=== PATIENT | female | born 2000 | race Caucasian/White ===

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

== ENCOUNTER 2022-09-17 02:47 | Emergency (ER) | payer BC, OTHER ==
[~2022-09-17] VITALS: Ht 154.9 cm; Wt 99.8 kg
[2022-09-17 03:33] LABS: BASOPHILS ABSOLUTE AUTO 0.03 K/mm3 (0.00-0.23); BASOPHILS PERCENT AUTO 0 % (0-2); EOSINOPHILS ABSOLUTE AUTO 0.12 K/mm3 (0.00-0.68); EOSINOPHILS PERCENT AUTO 2 % (0-6); Hematocrit 37.3 % (33.0-51.0); Hemoglobin 12.7 g/dL (11.5-16.0); IMMATURE GRAN ABSOLUTE AUTO 0.02 K/mm3 (0.00-0.10); IMMATURE GRAN PERCENT AUTO 0 % (0-1); LYMPHOCYTES ABSOLUTE AUTO 1.48 K/mm3 (0.84-5.20); LYMPHOCYTES PERCENT AUTO 19 % (21-46); MONOCYTES ABSOLUTE AUTO 0.61 K/mm3 (0.16-1.47); MONOCYTES PERCENT AUTO 8 % (4-13); Mean Corpuscular HGB 30.7 pg (26.0-34.0); Mean Corpuscular Volume 90 fL (80-100); Mean Platelet Volume 9.5 fL (9.1-12.4); NEUTROPHILS ABSOLUTE AUTO 5.58 K/mm3 (1.96-9.15); NEUTROPHILS PERCENT AUTO 71 % (41-73); Platelet Count 299 K/mm3 (150-400); RDW Coefficient Variation 12.5 % (11.7-14.2); RDW Standard Deviation 41.2 fL (35.1-46.3); Red Blood Cell Count 4.14 M/mm3 (3.80-5.20); White Blood Cell Count 7.84 K/mm3 (4.00-11.30)
[2022-09-17 03:51] LABS: Albumin, Blood 3.1 g/dL (3.4-5.0); Bilirubin, Direct 0.1 mg/dL (0.0-0.3); Bilirubin, Indirect 0.2 mg/dL (0.1-0.7); Bilirubin, Total 0.3 mg/dL (0.1-1.0); Bun/Creatinine Ratio 16.3 (12.0-20.0); Creatinine, Blood 0.61 mg/dL (0.40-1.00); Magnesium, Blood 1.8 mg/dL (1.6-2.4); Potassium, Blood 3.5 mmol/L (3.5-5.5); Total Protein, Blood 6.1 g/dL (6.4-8.2)
[2022-09-17 04:25] LABS: Source, Urine Clean Catch
[2022-09-17 04:44] LABS: Bilirubin, Urine Neg (Neg); Blood, Urine Neg (Neg); Glucose Qualitative, Urine Neg (Neg); Ketones, Urine Neg (Neg); Leukocyte Esterase, Urine 1+ (Neg); Nitrite, Urine Neg (Neg); Protein, Urine Neg (Neg); Urobilinogen, Urine NORM (Normal)
[2022-09-17 04:59] LABS: Appearance, Urine Clear (Clear); Color, Urine Pale Yellow (P-Yellow)
[2022-09-17 05:07] LABS: Amorphous Light (0-Heavy); Bacteria Not Seen /hpf; Red Blood Cells, Urine Not Seen /hpf (0-2); Squamous Epithelial Cells Not Seen /hpf (Few); White Blood Cells, Urine 0-2 /hpf (0-5)
[2022-09-17 05:48] LABS: Influenza A, PCR NEGATIVE (NEGATIVE); Influenza B, PCR NEGATIVE (NEGATIVE); Resp Syncytial Virus, PCR NEGATIVE (NEGATIVE); SARS-Cov-2 (COVID-19) PCR, MMC NEGATIVE (NEGATIVE)
== END 2022-09-17 06:21 | disposition home or self-care (01) ==
LOC: ER 02:47
PROVIDERS: Student in an Organized Health Care Education/Training Program
DX: M79.18 Myalgia, other site (principal); M54.9 Dorsalgia, unspecified; R07.89 Other chest pain; Z88.6 Allergy status to analgesic agent; Z91.040 Latex allergy status; Z91.048 Other nonmedicinal substance allergy status; Z20.822 Contact with and (suspected) exposure to COVID-19
CPT/HCPCS: 0241U; 80048; 80076; 81001; 81025; 83690; 83735; 85025; J1885; J2405; J7030

== ENCOUNTER 2023-05-17 06:29 | Observation (INO) | payer OTHER ==
[2023-05-17] VITALS (12 sets, daily range): BP systolic 99–139; BP diastolic 47–76
[~2023-05-17] VITALS: Ht 154.9 cm; Wt 108.9 kg
[~2023-05-17 06:29] MED LIST changes: +CYCL10 PO
[2023-05-17] MEDS ORDERED: DESVENLAFAXINE100 M3 PO (06:46)
[2023-05-17 07:09] LABS: Source, Urine Clean Catch
[2023-05-17 07:16] LABS: Appearance, Urine Clear (Clear); Bilirubin, Urine Neg (Neg); Blood, Urine Neg (Neg); Color, Urine Yellow (P-Yellow); Glucose Qualitative, Urine Neg (Neg); Ketones, Urine Neg (Neg); Leukocyte Esterase, Urine Neg (Neg); Nitrite, Urine Neg (Neg); Protein, Urine Neg (Neg); Specific Gravity, Urine 1.015 (1.003-1.022); Urobilinogen, Urine NORM (Normal)
[2023-05-17 07:18] LABS: BASOPHILS ABSOLUTE AUTO 0.05 K/mm3 (0.00-0.23); BASOPHILS PERCENT AUTO 1 % (0-2); EOSINOPHILS ABSOLUTE AUTO 0.07 K/mm3 (0.00-0.68); EOSINOPHILS PERCENT AUTO 1 % (0-6); Hematocrit 42.5 % (33.0-51.0); Hemoglobin 14.2 g/dL (11.5-16.0); IMMATURE GRAN ABSOLUTE AUTO 0.03 K/mm3 (0.00-0.10); IMMATURE GRAN PERCENT AUTO 0 % (0-1); LYMPHOCYTES ABSOLUTE AUTO 1.44 K/mm3 (0.84-5.20); LYMPHOCYTES PERCENT AUTO 16 % (21-46); MONOCYTES ABSOLUTE AUTO 0.71 K/mm3 (0.16-1.47); MONOCYTES PERCENT AUTO 8 % (4-13); Mean Corpuscular HGB 30.1 pg (26.0-34.0); Mean Corpuscular HGB Conc 33.4 g/dL (31.5-36.5); Mean Corpuscular Volume 90 fL (80-100); Mean Platelet Volume 9.1 fL (9.1-12.4); NEUTROPHILS PERCENT AUTO 74 % (41-73); Platelet Count 343 K/mm3 (150-400); RDW Coefficient Variation 12.6 % (11.7-14.2); RDW Standard Deviation 41.2 fL (35.1-46.3); Red Blood Cell Count 4.71 M/mm3 (3.80-5.20)
[2023-05-17 07:37] LABS: Albumin, Blood 3.7 g/dL (3.4-5.0); Bilirubin, Total 0.4 mg/dL (0.1-1.0); Bun/Creatinine Ratio 17.3 (12.0-20.0); Calcium, Blood 8.7 mg/dL (8.5-10.1); Creatinine, Blood 0.87 mg/dL (0.40-1.00); Globulin, Blood 3.8 g/dL (2.2-4.0); Potassium, Blood 3.8 mmol/L (3.5-5.5); Total Protein, Blood 7.5 g/dL (6.4-8.2)
[2023-05-17] MEDS ORDERED: PROG100 PO (12:13)
[2023-05-17] MEDS ORDERED: CYCL10 PO (12:13)
[2023-05-17] MEDS ORDERED: ALBU90OI INH (12:20)
[2023-05-17] MEDS ORDERED: ESZOPICLONE1 MG PO (12:22)
--- NOTE | 2023-05-17 12:29 | NUR ---
History, Chart, Medications and Allergies reviewed before start of procedure. Pre-Op teaching done. Pt verbalizes understanding. Patient confirms NPO status and agrees with scheduled surgery. Patient States Post-Procedure ride home has been arranged. Lungs clear T/O to Auscultation. Surgical site prepped with 2% Chlorhexidine cloth wipe.
--- NOTE | 2023-05-17 15:01 | NUR ---
ARRIVAL TO UNIT ARRIVES VIA GOURNEY & TRANSFERED TO HOSPITAL BED. ALERT & ORIENTED, BUT SLIGHTLY ANXIOUS. ABD SOFT w/ LAP SITES x 4 w/ WOUND GLUE; NO DRNG. LUNGS CLEAR. DENIES N/V. REPORTS PAIN MINIMAL. GIVEN SIPS OF WATER & JUICE.
[2023-05-17] MEDS ORDERED: Norco 5-325 Ta1 EACH PO (17:32)
[2023-05-17] MEDS ORDERED: ONDA4ODT MM (17:32)
--- NOTE | 2023-05-17 18:29 | NUR ---
DISCHARGE EATING, DRINKING, & VOIDING. PAIN CONTROLLED. ABD SOFT & LAP SITES WNL. EXCITED TO GO HOME. ESCORTED OUT VIA WC.
== END 2023-05-17 18:29 | disposition home or self-care (01) ==
LOC: ER 06:29 → SURS 06:30
PROVIDERS: Student in an Organized Health Care Education/Training Program; ADMIT Surgery
PROC: 0FT44ZZ Resection of Gallbladder, Percutaneous Endoscopic Approach (ICD-10-PCS; principal; 2023-05-17 13:00)
DX: K80.00 Calculus of gallbladder with acute cholecystitis without obstruction (principal); Z88.6 Allergy status to analgesic agent; Z91.040 Latex allergy status; Z91.048 Other nonmedicinal substance allergy status
CPT/HCPCS: 74177; 74300; 80053; 81003; 81025; 85025; 88304; 96365-59; 96375; 99285-25; A9270; C1729; J0690; J1100; J1170; J1885; J2250; J2371; J2405; J2704; J3010; J7120; Q9967

== ENCOUNTER 2024-08-05 18:50 | Emergency (ER) | payer OTHER ==
[~2024-08-05] VITALS: Ht 154.9 cm; Wt 117.9 kg
[~2024-08-05 18:50] MED LIST changes: +DESVENLAFAXINE100 M3 PO; +ESZOPICLONE1 MG PO; +Norco 5-325 Ta1 EACH PO; +ONDA4ODT MM; +PROG100 PO
[2024-08-05] MEDS ORDERED: HYDCHL25 PO (19:58)
[2024-08-05] MEDS ORDERED: MODAFINIL200 MG PO (19:58)
[2024-08-05] MEDS ORDERED: Acetaminophen 500 MG Tab PO ONE (20:20)
[2024-08-05] MEDS ORDERED: DiphenhydrAMINE HCL 25 MG Cap PO ONE (20:40)
[2024-08-05] MEDS ORDERED: MethylPREDNISolone Sod Succ 125 MG Vial IV ONE (20:40)
[2024-08-05] MEDS ORDERED: Famotidine 20 MG Tab PO ONE (20:45)
[2024-08-05] MEDS ORDERED: Ondansetron 4 MG TAB PO ONE (20:45)
[2024-08-05] MEDS ORDERED: Fluorescein Sod 1MG Opth Strips RIGHTEYE ONE (22:00)
[2024-08-05 22:15] VITALS: BP 124/91
[2024-08-05] MEDS ORDERED: Ketorolac Tromethamine 15mg Vial IV ONE (22:15)
== END 2024-08-05 22:32 | disposition home or self-care (01) ==
LOC: ER 18:50
DX: S50.311A Abrasion of right elbow, initial encounter (principal); S80.211A Abrasion, right knee, initial encounter; M25.511 Pain in right shoulder; R07.89 Other chest pain; V80.010A Animal-rider injured by fall from or being thrown from horse in noncollision accident, initial encounter; Y93.52 Activity, horseback riding; Z91.041 Radiographic dye allergy status; Z88.5 Allergy status to narcotic agent; Z88.6 Allergy status to analgesic agent; Z91.09 Other allergy status, other than to drugs and biological substances; Z91.040 Latex allergy status; Z79.899 Other long term (current) drug therapy
CPT/HCPCS: 70450; 71260; 73030; 73552; 96374-59; 96375-59; 99284-25; A9270; J1885; J2919; Q9967

== ENCOUNTER 2024-08-07 13:13 | Emergency (ER) | payer SELFPAY ==
[~2024-08-07] VITALS: Ht 154.9 cm; Wt 119.8 kg
[~2024-08-07 13:13] MED LIST changes: +HYDCHL25 PO; +MODAFINIL200 MG PO
[2024-08-07 13:24] VITALS: BP 142/63
== END 2024-08-07 14:41 | disposition home or self-care (01) ==
LOC: ER 13:13
DX: M25.552 Pain in left hip (principal); E66.9 Obesity, unspecified; Z91.041 Radiographic dye allergy status; Z88.6 Allergy status to analgesic agent; Z91.040 Latex allergy status; Z88.5 Allergy status to narcotic agent; Z91.048 Other nonmedicinal substance allergy status; Z79.899 Other long term (current) drug therapy
CPT/HCPCS: 73700; 99283-25